=== PATIENT | female | born 1950 | race Caucasian/White ===

== ENCOUNTER 2022-06-28 11:34 | Outpatient (CLI) | payer OTHER, SELFPAY ==
--- OUTSIDE RECORDS SUMMARY | 2022-06-28 11:38 | XMS_ITS ---
:1950 Author Care Team Providers Name Role Phone [facility]) Primary Care Provider [phone] Allergies None recorded. Medications Name Status Start Date Stop Date ? ? amoxicillin 500 mg capsule Completed ? 06/23 TAKE 1 CAPSULE BY MOUTH 3 TIMES DAILY UNTIL GONE atorvastatin 20 mg tablet Active ? Not av ailable GaviLyte-G 236 gram-22.74 gram-6.74 gram-5.86 gram oral solution Completed ? 06/23/2022 PLEASE SEE ATTACHED FOR DETAILED DIRECTIONS levothyroxine 75 mcg tablet Active ? Not available timolol maleate 0.5 % eye drops Completed ? 06/23/2022 INSTILL 1 DROP IN BOTH EYES EVERY MORNING DIRECTED Problems Name Status Onset Date Source ? Overactive Bladder Active 06/23/2022 ? Procedures None recorded. Results Lab Results Date Name Specimen Result Interpretation Description Value Range Status Address ? 06/23/2022 Urinalysis, ? Color-Status Yellow ? ? [facility]: [address], [place] ? ? ? Clarity-Status Clear ? ? [facility]: [address], [place] ? ? ? Bilirubin-Status Small ? ? [facility]: [address], [place] ? ? ? Ketones-Status 5 ? ? [facility]: [address], [place] ? ? ? Blood-Status Trace ? ? [facility]: [address], [place] ? ? ? Leuko-Status Trace ? ? [facility]: [address], [place] Past Encounters 06/23/2022 Incontinence; Overactive Bladder Lavon Ascencio MD: [address], [address], [place] [address], Ph. Social History Tobacco Smoking Status Former Smoker Vaccine List None recorded. Plan of Care Reminders Provider Appointments None recorded. ? ? Lab None recorded. ? ? Referral None recorded. ? ? Procedures None recorded. ? ? Surgeries None recorded. ? ? Imaging None recorded. ? ? Vitals Height Weight BMI 5 ft 3.75 in 150 lbs 25.9 kg/m2
--- OUTSIDE RECORDS SUMMARY | 2022-06-28 11:38 | XMS_ITS | Encounter Summary ---
:1950 Author Care Team Providers Name Role Phone [facility] Provider [phone] Reason for Visit Incontinence Assessment and Plan 1. Incontinence ? urinalysis, dipstick 2. Overactive bladder - Overactive bladder with urge incontin ence. We discussed dietary factors such as caffeine and alcohol. Her intake is not excessive. She does drink a lot of water. - We discussed the role of medications a nd the typical side effects. I provided samples of Gemtesa 75 mg daily and Myrbetriq 50 mg daily to try for 3 weeks each. She has my number and will call if she w ould like a prescription. She will also investigate her insurance formulary coverage for each drug. Discussion Note: None recorded.Patient educational handouts: No information available. Plan of Care Reminders Provider Appointments None recorded. ? ? Lab Urinalysis, Dipstick 06/23/2022 [facility] Referral None recorded. ? ? Procedures None recorded. ? ? Surgeries None recorded. ? ? Imaging None recorded. ? ? Medications Name Start Date ? ? atorvastatin 20 mg tablet ? levothyroxine 75 mcg tablet ? Medications Administered None recorded. Vitals Height Weight BMI 5 ft 3.75 in 150 lbs 25.9 kg/m2 Results Lab Results Date Name Specimen Result Interpretation Description Value Range Status Address ? 06/23/2022 Urinalysis, ? Color-Status Yellow ? ? [facility]: [address], [place] ? ? ? Clarity-Status Clear ? ? [facility]: [address], [place] ? ? ? Bilirubin-Status Small ? ? [facility]: [address], [place] ? ? ? Ketones-Status 5 ? ? [facility]: [address], [place] ? ? ? Blood-Status Trace ? ? [facility]: [address] [facility] [address] [facility] [address], [place] ? ? ? Leuko-Status Trace ? ? [facility]: [facility] [facility] [address], [place] Allergies None recorded. Problems Name Status Onset Date Source ? Overactive Bladder Active 06/23/2022 ? Procedures None recorded. Vaccine List None recorded. Social History Tobacco Smoking Status Former Smoker What was the date of your most recent tobacco 06/23/2022 screening? When did you quit smoking? 1-5yearssincelastcigarette Family History Relation Problem Onset Age of Age Notes Sister Family history of cancer of (No Information) N/A (No Notes) colon Brother Family history of diabetes (No Information) N/A (No Notes) mellitus Functional Status Unknown. Past Encounters 06/23/2022 Incontinence; Overactive Bladder Lavon Ascencio MD: [address], [address], [place] [address], Ph. History of Present Illness Note: <div>New patient referred for about a 3-year history of urinary urgency, frequency and urgency incontinence. She uses about 3 pads or more per day. I reviewed the most recent clinic note from Dr. Bagley dated 06/09/2022. She reports good force of stream with no straining to void, no hematuria, no UTIs. She voids about every 2-3 hours during the day with nocturia x1. No stress incontinence. She drinks about 1 coffee and 1 beer per day but no soda. Urinalysis today trace blood, trace leukocytes, otherwise negative. Postvoid residual 3 mL.</div> Review of Systems ? Comprehensive General Adult ROS Reported By: Patient Constitutional: Constitutional: no fever, no chills Eyes: Eyes: no dry eyes, no irrita tion, vision change Endocrine: Endocrine: no fatigue, no in creased thirst Cardiovascular: Cardiovascular: no chest karen n, no palpitations Integumentary: Skin: no rashes, no change i n skin color Respiratory: Respiratory: no wheezing, no cough, no shortness of breath Gastrointestinal: Gastrointestinal: no abdomin al pain, no nausea, no vomiting, no constipation, GERD Musculoskeletal: Musculoskeletal: no neck karen n, back pain Neurologic: Neurologic: no tremor, no di zziness, no numbness, no headaches Genitourinary: Genitourinary: no difficulty urinating, urinary loss of control ENMT: Ears: no ear pain. Mouth/Thr oat: no sore throat Allergic/Immunologic: Allergy/Immunologic: no itch ing, no hives Hematologic/Lymphatic: Hematologic/Lymphatic no swo llen glands, no excessive bleeding Psychiatric: Psych: no hallucinations, (n ormal) sleep disturbances: mismatch of sleep / wake norris edule with lifestyle needs Physical Exam ? Notes: <div>General: No acute distr ess, well developed/well nourished
Resp: respirations non labored, no audible wheeze
MSK: no gross deformities
Neuro: moving all extremities, grossly non focal
Psych: normal mood and affect, no c onfusion</div>
--- OUTSIDE RECORDS SUMMARY | 2022-06-28 11:38 | XMS_ITS | Clinical Summary ---
:1950 Author Organization [facility] [facility] [facility] [place] [address] Care Team Providers Name Role Phone Miguel Guido MD Primary Care Provider Chaka Spence MD Unavailable Carmen Andrade RN, BSN, OCN Unavailable [phone] Allergies Active Allergy Reactions Severity Noted Date Comments Iohexol Rash 01/23/2021 Something used in PET scan contrast dye Medications Medication Sig Dispensed Refills Start Date End Date Status ASPIRIN 81 MG TAB, take 1 tablet (81 0 11/03/2007 Active DELAYED RELEASE mg) by oral route once daily cholecalciferol Take 2 Capsules 0 10/21/2021 Active (Vitamin D) 1,000 (2,000 units) by unit capsule mouth once daily. levothyroxine Take 1 Tablet (75 90 Tablet 3 10/21/2021 Active (SYNTHROID) 75 mcg mcg) by mouth tabletIndications: once daily. Hypothyroidism, unspecified type atorvastatin Take 1 Tablet (20 90 Tablet 3 10/21/2021 Active (LIPITOR) 20 mg mg) by mouth at tabletIndications: bedtime. Stenosis of carotid artery, unspecified laterality, Mixed hyperlipidemia timoloL maleate INSTILL 1 DROP IN 0 12/19/2021 Active (TIMOPTIC) 0.5 % BOTH EYES EVERY ophthalmic solution MORNING DIRECTED polyethylene Take 4,000 mL by 4000 mL 0 06/14/2022 2 glycol-electrolyte mouth one time (GOLYTELY) for 1 dose. 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 Resection was on 03/12/2021. Katarzyna has decided she does not want to d o chemotherapy anymore as of 04/2021. Miguel Guido MD ICAO (internal carotid artery occlusion), right 2020 Adenomatous colon polyp 06/02/2018 Overview: Colonoscopy 05/2018 polyps, repeat in 6 months at [facility]. Colonoscopy 02/2019 large polyp, repeat i n 2 years at [facility] Low back pain radiating to both legs 07/23/2016 Pain of right lower extremity 07/03/2016 Hypothyroidism 07/13/2015 Mixed hyperlipidemia 07/02/2015 Vitamin D deficiency 05/11/2011 Heartburn 05/24/2010 Neck pain 06/16/2009 Family history of diabetes mellitus 04/30/2009 Occupational problem 03/25/2009 Tobacco use disorder 11/03/2007 Overview: She quit smoking in 03/2018. Migraine, unspecified, without mention of intractable migraine without 11/01/2007 mention of status migrainosus Encounters Date Type Specialty Care Team Description 06/23/2022 Nurse/Clinic Staff Testing ( Pre-Procedure Only Testing ) 06/23/2022 Travel 06/23/2022 Telephone Azar Ellsworth MD 06/17/2022 Telephone Miguel Guido Results MD Porter 06/09/2022 Preop Visit Miguel Guido Pre-Op Exam MD Porter (Colonoscopy on 06/28/22 at [facility] with Dr. Ellsworth. ) 06/09/2022 Travel 04/23/2022 Ancillary Procedure 04/23/2022 Travel 04/20/2022 Telephone Miguel Guido MD from Last 3 Months Immunizations Name Administration Dates Next Due COVID-19 vaccine (Pfizer-BioNTech 30mcg/0.3mL) 12YO+ 022 BIVALENT BOOSTER PF, MDV COVID-19 vaccine (Pfizer-BioNTech 30mcg/0.3mL) 12YO+ 022 AUSTIN-SUCROSE PF, MDV COVID-19 vaccine (Pfizer-BioNTech 30mcg/0.3mL) PF, 1 MDV Td (Age >=7 Years) 02/06/2009, 10/11/1995 Tdap 07/02/2015 Family History Medical History Relation Name Comments Other Brother 1 Augustin Gall bladder Stroke Brother 1 Augustin of a stroke at 75 Other Brother 2 Aidan of MRSA at 63 Stroke Brother 2 Aidan Other Daughter Gall bladder Heart attack Father of cardiac arrest at 63 Heart failure Mother of this at 87 Other Mother Gall bladder Cancer-colon Sister 1 Jaimee of colon ca ncer at 61 Cancer Sister 2 Galina of brain ca ncer at 77 Dementia Sister 2 Galina Other Son Gall bladder Relation Name Status Comments Brother 1 Augustin (Age 75) Brother 2 Aidan (Age 63) Brother 3 Harpreet Alive Daughter Father (Age 63) Mother (Age 87) Sister 1 Jaimee (Age 61) Sister 2 Galina (Age 77) Son Social History Tobacco Use Types Packs/Day Years Used Date Former Smoker Cigarettes 0.5 30 Quit: 04/08/20 21 Smokeless Tobacco: Never Used Tobacco Cessation: Counseling Given: Yes Alcohol Use Standard Drinks/Week Comments Yes 4 (1 standard drink = 0.6 oz pure alcoho l) occasional Alcohol Habits Answer Date Recorded How often do you have a drink containing alcohol? Not asked How many drinks containing alcohol do you have on a typical Not asked day when you are drinking? How often do you have six or more drinks on one occasion? No t asked Comment: occasional 07/02/2015 Sex Assigned at Date Recorded Not on file COVID-19 Exposure Response Date Recorded In the last 10 days, have you been in contact with No / Unsu re 06/23/2022 2:13 PM CDT someone who was confirmed or suspected to have Coronavirus/COVID-19? Obstetrics History Last Filed Vital Signs Vital Sign Reading Time Taken Comments Blood Pressure 144/62 06/09/2022 10:29 AM CDT Pulse 55 06/09/2022 9:57 AM CDT Temperature 36.6 ??C (97.9 ??F) 04/21/2021 11:23 AM CDT Respiratory Rate 16 04/21/2021 12:00 PM CDT Oxygen Saturation 99% 06/09/2022 9:57 AM CDT Inhaled Oxygen Concentration - - Weight 69.1 kg (152 lb 4.8 oz) 06/09/2022 9:57 AM CDT Height 160.7 cm (5' 3.25) 06/09/2022 9:57 AM CDT Body Mass Index 26.77 06/09/2022 9:57 AM CDT Plan of Treatment Upcoming Encounters Date Type Specialty Care Team Description 06/28/2022 Procedure Only Azar Ellsworth MD Arrived [address] [place], [place] [address] (Wo rk) Health Maintenance Due Date Last Done Comments Pneumococcal series for age 65+ (1 1954 - PCV) Zoster (shingles) series for age 0209/26/1967 50+ (1 of 2) Fecal testing non-DNA 05/15/2018 05/15/2017, 04/14/2016, (FIT,FOBT,iFOBT) for age 45-75 04/29/2015 Colonoscopy through age 75 03/05/2021 06/28/2022, 9, 03/05/2019, Additional history exists Influenza for age 65+ 04/22/2022 Medicare Wellness for age 65+ 10/21/2022 10/21/2021, 2017 Depression screening for age 12+ 10/22/2022 10/22/2021, 09/2021, 10/21/2021, Additional history exists Mammogram for age 45-75 04/23/2023 04/23/2022, 10/13/2020, 05/11/2018, Additional history exists BMI (ht and wt on same day) for 06/09/2023 06/09/2022, 09/2021, age 18+ 06/03/2021, Additional history exists Tetanus booster 07/02/2025 07/02/2015, 02/06/2009, 10/11/1995 Lipids for age 45-75 06/09/2027 06/09/2022, 10/21/2021, 11/11/2020, Additional history exists Tdap Completed 07/02/2015 DEXA/DXA scan for age 65+ Completed 05/15/2018 Hepatitis C screening for age Completed 10/21/2021 18-79 COVID-19 vaccine series Completed 06/09/2022, 12/21/2021, 05/29/2021, Additional history exists Medical Devices Implanted Type Area Adjunct Philosophy Faculty Device Shelf Model / Identifier Expiration Serial / Date Lot Port W/8fr 1 [employer] Powerport - [id number] Right: Bard Per ipheral 10/19/2022 [id number] / Implanted: Qty: 1 on 04/21/2021 by Jose beavers, Gail Sanchez MD at [facility] [employer] / [id number] Procedures Procedure Name Priority Date/Time Associated Diagnosis Comme nts COLONOSCOPY Routine 06/28/2022 8:01 Screening for colon 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 COVID 19 COLLECTION Routine 06/23/2022 2:30 Screening examinat ion Results for this PM CDT for infectious disease proce dure are in the results section. TSH Routine 06/09/2022 11:17 Other specified Results for this AM CDT hypothyroidism procedure are in the results section. VITAMIN D 25 Routine 06/09/2022 11:17 Vitamin D deficiency Res ults for this (DEFICIENCY) AM CDT procedure are i n the results section. HEMOGLOBIN A1C Routine 06/09/2022 11:17 Hyperglycemia Results for this SCREENING AM CDT procedure are i n the results section. BASIC METABOLIC Routine 06/09/2022 11:17 Malignant neoplasm of Results for this PANEL AM CDT upper lobe of right procedur e are in lung (HC) the results section. LIPID PANEL W REFLEX Routine 06/09/2022 11:17 Mixed hyperlipid emia Results for this MEASURED LDL AM CDT procedure are i n the results section. XR MAMMO BILAT Routine 04/23/2022 1:44 Visit for screening Res ults for this SCREENING PM CDT mammogram procedure are i n the results section. from Last 3 Months Results COVID 19 (06/23/2022 2:30 PM CDT) Analysis Performed At [facility] logist Time Signature COVID 19 Negative Negative 06/24/2022 [facility] 12:31 PM CDT LABORATORY-[facility] Comment: All PCR tests are subject to fa lse negative result due to variability in viral load and collection technique. A n egative result does not rule out a SARS-CoV-2 infection. Clinical correlation required . Specimen Anatomical Location / Collection Method Collection Rene e Received Time (Source) Laterality / Volume Other SPECIMEN FROM Non-Blood / 06/23/2022 2:30 06/24/2022 6:31 NASOPHARYNGEAL Unknown PM CDT AM CDT STRUCTURE / Unknown Narrative [facility] LABORATORY-CENTRAL LABORAT ORY - 06/24/2022 12:31 PM CDT This test has been authorized by FDA und er an Emergency Use Authorization (EUA). This test is only authorized for the duration of time the declaration that circumstances exist justifying the authorization of th e emergency use of in vitro diagnostic tests for detection of SARS-CoV-2 virus and/or diagnosis of COVID-19 infection under section 564(b)(1) of the Act, 21 U.S.C. 360bbb-3(b)(1), unless the authorization is terminated or revoked sooner. Zandra JOY MICROBIOLOGY Performing Organization Address City/State/ZIP Code Phon e Number [facility] [address] [place] [address] LABORATORY-CENTRAL 2000 LABORATORY COVID 19 COLLECTION [[id number]] (06/23/2022 2:30 PM CDT) [facility] gist Method Time Signature TESTING [facility] 06/24/2022 [facility] LABORATORY Laboratory 6:32 AM CDT LABORATORY-CE NTRAL LABORATORY Comment: Specimen submitted to [facility] for testing. Specimen Anatomical Location / Collection Method Collection Rene e Received Time (Source) Laterality / Volume Other SPECIMEN FROM Non-Blood / 06/23/2022 2:30 06/23/2022 2:34 NASOPHARYNGEAL Unknown PM CDT PM CDT STRUCTURE / Unknown Zandra JOY SEND OUTS Performing Organization Address City/[facility] Phon e Number [facility] [address] [place] [address] LABORATORY-CENTRAL 2000 LABORATORY HEMOGLOBIN A1C SCREENING (06/09/2022 11:17 AM CDT) P athologist Signature HEMOGLOBIN A1C 6.0 <=6.4 % 06/09/2022 [facility] SCREENING 7:44 PM CDT LABORATORY-CENT RAL LABORATORY Specimen Anatomical Collection Method / Collection Time Recei sergio Time (Source) Location / Volume Laterality Blood BLOOD SPECIMEN / Venipuncture / 06/09/2022 11:17 06/09 Unknown Unknown AM CDT 11:18 AM CDT Narrative [facility] [facility] LABORATORY-CENTRAL LABORAT ORY - 06/09/2022 7:44 PM CDT ? (<5.7%) ?Normal ? (5.7% to 6.4%) ? Indicates pr ediabetes ? (>=6.5%) ? Confirms diabetes Falsely low levels may be seen with: Recent Transfusion, Recent Significant B lood Loss, Hemolytic Diseases, or Falsely elevated levels may be seen with : Untreated Anemias, Splenectomy Miguel Guido MD CHEMISTRY Performing Organization Address City/[facility] Phon e Number [facility] [address] [place] [address] LABORATORY-CENTRAL 1999 LABORATORY LIPID PANEL W REFLEX MEASURED LDL (06/09/2022 11:17 AM CDT) [facility] gist Method Time Signature CHOLESTEROL,TOTAL 157 100 - 199 06/10/2022 [facility] mg/dL 4:39 AM CDT LAB[facility]AT[facility] TR[facility] TRIGLYCERIDES 82 <150 06/10/2022 [facility] mg/dL 4:39 AM CDT [facility]AT[facility] TR[facility] HDL CHOLESTEROL 53 >40 mg/dL 06/10/2022 [facility] 4:39 AM CDT [facility] TR[facility] NON-HDL 104 <145 06/10/2022 [facility] CHOLESTEROL mg/dl 4:39 AM CDT [facility]AT[facility] CHOL/HDL RATIO 2.96 <4.50 06/10/2022 [facility] 4:39 AM CDT [facility] LDL CHOLESTEROL 88 <=130 06/10/2022 [facility] mg/dL 4:39 AM CDT [facility] VLDL CHOLESTEROL 16 <=30 06/10/2022 [facility] mg/dL 4:39 AM CDT [facility] TRAL [facility] PROVIDER ORDERED RANDOM 06/10/2022 [facility] STATUS 4:39 AM CDT [facility] Specimen Anatomical Collection Method / Collection Time Recei sergio Time (Source) Location / Volume Laterality Blood BLOOD SPECIMEN / Venipuncture / 06/09/2022 11:17 06/09 Unknown Unknown AM CDT 11:18 AM CDT Miguel Guido MD CHEMISTRY Performing Organization Address City/[facility] Phon e Number [facility] [address] [place] [address] [place] [address] LABORATORY-CENTRAL 2000 LABORATORY VITAMIN D 25 (DEFICIENCY) (06/09/2022 11:17 AM CDT) athologist Signature VITAMIN D 55.5 30.0 - 06/10/2022 [facility] TOTAL 80.0 ng/mL 4:47 AM CDT LABORATORY-CENT RAL LABORATORY Specimen Anatomical Collection Method / Collection Time Recei sergio Time (Source) Location / Volume Laterality Blood BLOOD SPECIMEN / Venipuncture / 06/09/2022 11:17 06/09 Unknown Unknown AM CDT 11:18 AM CDT Narrative [facility] LABORATORY-CENTRAL LABORAT ORY - 06/10/2022 4:47 AM CDT Deficiency: ? <20 ng/mL Insufficiency: ?20-29 ng/mL Sufficiency: ?30-80 ng/mL Possible Toxicity: ??>80 ng/mL Based on [place] [facility] recommend ations Miguel Guido MD SEND OUTS Performing Organization Address [facility] Phon e Number [facility] [address] [place] [address] LABORATORY-CENTRAL 1999 LABORATORY (ABNORMAL) TSH (06/09/2022 11:17 AM CDT) P athologist Signature TSH 0.32 (L) 0.35 - 4.94 06/10/2022 [facility] [place] [facility] uIU/mL 4:52 AM CDT [facility]AT[facility] Specimen Anatomical Collection Method / Collection Time Recei sergio Time (Source) Location / Volume Laterality Blood BLOOD SPECIMEN / Venipuncture / 06/09/2022 11:17 06/09 Unknown Unknown AM CDT 11:18 AM CDT Narrative [facility] LABORATORY-CENTRAL LABORAT ORY - 06/10/2022 4:52 AM CDT In Adults, TSH values between 5.00 and 10.00 uIU/ml do not necessarily indicate the presence of Hyp othyroidism. Correlation with clinical findings such as presence of goiter and/or Thyroperoxidase (TPO) Antibody ma y be helpful. For more information please refer to LILLI 20 ; 291: 228-238. Miguel Guido MD CHEMISTRY Performing Organization Address City/State/ZIP Code Phon e Number [facility] [address] [place], [place] [address] [address] LABORATORY-CENTRAL 2000 LABORATORY (ABNORMAL) BASIC METABOLIC PANEL (06/09/2022 11:17 AM CDT) Analysis Performed At Patho logist Time Signature SODIUM 140 135 - 145 06/10/2022 [facility] mmol/L 4:37 AM CDT [facility]AT[facility] TR[facility] POTASSIUM 5.1 (H) 3.5 - 5.0 06/10/2022 [facility] mmol/L 4:37 AM CDT LABORAT[facility] TRAL [facility] CHLORIDE 106 98 - 110 06/10/2022 [facility] mmol/L 4:37 AM CDT LAB[facility]AT[facility] CO2,TOTAL 25 21 - 31 06/10/2022 [facility] mmol/L 4:37 AM CDT [facility] ANION GAP 9 5 - 18 06/10/2022 [facility] 4:37 AM CDT [facility] GLUCOSE 95 65 - 100 06/10/2022 [facility] mg/dL 4:37 AM CDT [facility] CALCIUM 9.9 8.5 - 10.5 06/10/2022 [facility] mg/dL 4:37 AM CDT [facility] BUN 9 8 - 25 06/10/2022 [facility] mg/dL 4:37 AM CDT [facility] CREATININE 0.86 0.57 - 06/10/2022 [facility] 1.11 mg/dL 4:37 AM CDT [facility] BUN/CREAT RATIO 10 - 20 06/10/2022 [facility] 4:37 AM CDT [facility] eGFR 71 (L) >90 06/10/2022 [facility] mL/min/1.7 4:37 AM CDT LABORATORY-[facility] 3m2 TRAL LABORATORY Comment: As of 2021, eGFR is calcu lated by the CKD-EPI creatinine equation without race adjustment. eGFR can be inf luenced by muscle mass, exercise, and diet. The reported eGFR is an estimation only and is only applicable if the renal function is stable. Specimen Anatomical Collection Method / Collection Time Recei sergio Time (Source) Location / Volume Laterality Blood BLOOD SPECIMEN / Venipuncture / 06/09/2022 11:17 06/09 Unknown Unknown AM CDT 11:18 AM CDT Miguel Guido MD CHEMISTRY Performing Organization Address City/State/ZIP Code Phon e Number [facility] [address] [place] [address] LABORATORY-CENTRAL 2000 LABORATORY XR MAMMO BILAT SCREENING (04/23/2022 1:44 PM CDT) Anatomical Region Laterality Modality BREASTS, Breast Left, Breast Right Bilateral Mammo graphy Specimen (Source) Anatomical Location Collection Method / Collectio n Time Received Time / Laterality Volume Impressions 04/27/2022 3:10 PM CDT ??There is no radiographic evidence for malignancy. ??Recommend annual mammograms. MAMMOGRAM ASSESSMENT: ??ACR 1 Negative PATIENTS: You will also receive a letter with your examination results in an easy to read format. ??If you have qu estions about your results, please contact your referring provider. Narrative 04/27/2022 3:10 PM CDT For Patients: As a result of the Century Cures Act, medical imaging exams and procedure reports are released immediately into your electronic medical record. You may view this report before your referring provider. If you have questions, please contact [facility] care provider. XR MAMMO BILAT SCREENING [[id number]] CLINICAL HISTORY: ??This is an asymptoma tic 71 y.o. patient. INDICATION FOR EXAM: Mammogram Screening . TECHNIQUE: CC & MLO views were obtained. ??This study was evaluated with the assistance of Computer-Aided Detecti on. COMPARISON FILM: Yes 10/13/20 [facility] 05/11/18 [facility] FINDINGS: ??The breasts have scattered a reas of fibroglandular density. There are no dominant masses, suspicious micro calcifications or areas of architectural distortion. Miguel Guido MD MAMMO from Last 3 Months Insurance Payer Benefit Plan / Subscriber ID Effective Dates Phone Addre ss Type Group WC WORKERS WC WORKERS [id number] 2009-Prese [phone] [place] [address] MEDICARE PART MEDICARE PART [id number] 2013-[place]: [place]S A - HB USE A HB ONLY t [address] [place] [address] Envis [id number] 2019-Presen [address] [place] [address] Alessandra Ko Workers Comp Self 1950 [address] [facility] (Home) [employer] [phone] Dana [place] (Work) [address] Advance Directives Documents on File Type Date Recorded Patient Manager Company Explanati on Healthcare Directive 03/21/2018 3:02 PM [employer] DIRECTIVE, BILLY GISSELLE, Francisco Javier 03/16/18 Latest Code Status on File Code Status Date Activated Date Inactivated Comments Full Code 04/21/2021 7:49 AM 04/21/2021 2:39 PM Code Status Discussion: Not Discussed Full Code 03/12/2021 11:20 AM 03/16/2021 5:25 PM Code Status Discussion: Not Discussed Care Teams English Language Learner Tutor Relationship Specialty Start Date End Date Miguel Guido MD PCP - General 11/03/07 [address] [place] [address] Chaka Spence MD Pulmonology Pulmonary Medicine 02/25/21 Carmen Andrade, RN, BSN, OCN Nurse Navigator Registered Nurse 02/25/21
--- NOTE | 2022-06-28 12:58 | W.ANESCHARGE ---
Anesthesia Charges Start Date/Time Anesthesia Start Date: 06/28/22 Anesthesia Start Time: 12:15 Stop Date/Time Anesthesia Stop Date: 06/28/22 Anesthesia Stop Time: 12:54 Summary Emergency: No Extremes of Age: Over 68-CPT 56100
== END 2022-06-28 11:35 | disposition home or self-care (01) ==
LOC: OP CLINIC 11:35
PROVIDERS: PCP Family Medicine; Visit Provider Internal Medicine Gastroenterology
DX: Z12.11 Encounter for screening for malignant neoplasm of colon (principal); K63.5 Polyp of colon; K57.30 Diverticulosis of large intestine without perforation or abscess without bleeding; Z86.010 Personal history of colon polyps
CPT/HCPCS: 00811; 45385; 99100; J2704